=== PATIENT | female | born 1980 | race Caucasian/White ===

== ENCOUNTER 2017-08-10 07:19 | Emergency (ER) | payer OTHER ==
[2017-08-10] MEDS ORDERED: IBUPROFEN 400 MG TAB ONE (07:40)
--- NOTE | 2017-08-10 08:31 | EDPHYS ---
Physician Documentation [facility] Name: Hannah Schroeder Age: 37 yrs Sex: Female : 1980 Arrival Date: 08/10/2017 Time: 07:23 Bed 13 Private MD: Ian Wagoner E ED Physician Kendall Rowe HPI: 08/10 07:45 This 37 yrs old Female presents to ER via Ambulatory with complaints of Foot cp Injury. 07:45 The patient presents with an abrasion, an injury, pain, that is acute. The complaints cp affect the lateral aspect of right foot and dorsum of right foot. Context: The problem was sustained outdoors, resulted from jumping from dock onto boat, the patient can fully bear weight, the patient is able to ambulate. Onset: The symptoms/episode began/occurred last night. Associated signs and symptoms: Pertinent negatives numbness, tingling. Treatment prior to arrival includes: wounds cleaned and dressed. Patient denies any fresh or salt water exposure. 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 - Social history:: Smoking status: Patient/guardian denies using tobacco, never smoked. - Ebola Screening: : Patient negative for fever greater than or equal to 101.5 degrees Fahrenheit, and additional compatible Ebola Virus Disease symptoms Patient denies exposure to infectious person Patient denies travel to an Ebola-affected area in the 21 days before illness onset No symptoms or risks identified at this time. ROS: 07:50 Constitutional: Negative for body aches, chills, fever, poor PO intake. cp 07:50 Eyes: Negative for injury, pain, redness, and discharge. cp 07:50 Cardiovascular: Negative for chest pain. 07:50 Respiratory: Negative for cough, shortness of breath, wheezing. 07:50 Abdomen/GI: Negative for abdominal pain, nausea, vomiting, and diarrhea. 07:50 MS/extremity: Positive for injury or acute deformity, abrasion, pain, swelling, tenderness, of the right foot, Negative for paresthesias. 07:50 All other systems are negative. Exam: 07:58 Constitutional: The patient appears in no acute distress, alert, awake, non-toxic, well cp developed, well nourished. 07:58 Head/Face: Normocephalic, atraumatic. cp Vital Signs: 07:32 BP 127 / 86; Pulse 94; Resp 16; Temp 98.0; Pulse Ox 100% on R/A; Weight 58.51 kg (R); sg Height 5 ft. 8 in. (172.72 cm) (R); Pain 4/10; 07:32 Body Mass Index 19.61 (58.51 kg, 172.72 cm) sg Procedures: 10:08 Splinting: Splint applied to right foot using Orthoglass splint, posterior lower leg, cp non-weight bearing. applied by nurse. Examined by me, post splint application: neurovascular intact, Patient tolerated well. 10:08 Crutch training provided to patient and/or family. Return demonstration given. cp MDM: 07:31 Patient medically screened. cp 08:29 Data reviewed: vital signs, nurses notes, radiologic studies, plain films. cp 08:29 Test interpretation: by ED physician or midlevel provider: plain radiologic studies. cp Counseling: I had a detailed discussion with the patient and/or guardian regarding: the historical points, exam findings, and any diagnostic results supporting the discharge/admit diagnosis, radiology results, the need for outpatient follow up, for definitive care, a orthopedic surgeon, to return to the emergency department if symptoms worsen or persist or if there are any questions or concerns that arise at home. Response to treatment: the patient's symptoms have mildly improved after treatment. 08/10 07:35 Order name: XRAY Foot RIGHT 3 View; Complete Time: 08:58 cp 08/10 08:21 Order name: Wound Care: please clean and dress abrasions on foot; Complete Time: 09:42 cp 08/10 08:21 Order name: Splint - Posterior Leg: short posterior lower leg; Complete Time: 09:41 cp 08/10 08:21 Order name: Crutches; Complete Time: 09:41 cp Administered Medications: 07:41 Drug: Ibuprofen 800 mg Route: PO; sg 09:40 Drug: Tylenol #3 (300 mg-30 mg) 2 tabs Route: PO; sg 09:45 Drug: Zofran 4 mg Route: PO; sg Disposition: 16:18 Co-signature as Attending Physician, Kendall Rowe MD. rn Disposition: 08/10/17 08:30 Discharged to Home. Impression: Nondisplaced fracture of fifth metatarsal bone, right foot, Abrasion of foot. - Condition is Stable. - Prescriptions for Tylenol- Codeine #3 300-30 mg Oral Tablet - take 2 tablets by ORAL route every 6 hours As needed; 20 tablet. Keflex 500 mg Oral Capsule - take 1 capsule by ORAL route every 8 hours for 10 days; 30 capsule. - Medication Reconciliation Form, Thank You Letter, Antibiotic Education, Prescription Opioid Use form. - Follow up: Kostas Montano MD; When: 2 - 3 days; Reason: Recheck today's complaints. - Problem is new. - Symptoms have improved. Signatures: Dispatcher [employer] EDKostas Ziegler RN RN sg Nieto, Roman, MD MD rn Page, Corey, PA PA cp Corrections: (The following items were deleted from the chart) 10:17 08:30 08/10/2017 08:30 Discharged to Home. Impression: Nondisplaced fracture of fifth sg metatarsal bone, right foot; Abrasion of foot. Condition is Stable. Forms are Medication Reconciliation Form, Thank You Letter, Antibiotic Education, Prescription Opioid Use. Follow up: Kostas Montano; When: 2 - 3 days; Reason: Recheck today's complaints. Problem is new. Symptoms have improved. cp
--- NOTE | 2017-08-10 08:31 | ER ---
Nurse's Notes [facility] Name: Hannah Schroeder Age: 37 yrs Sex: Female : 1980 Arrival Date: 08/10/2017 Time: 07:23 Bed 13 Private MD: Ian Wagoner E Diagnosis: Nondisplaced fracture of fifth metatarsal bone, right foot;Abrasion of foot Presentation: 08/10 07:29 Presenting complaint: Patient states: I jumped from a pier onto the both, i didn't sg realize how far down the boat was from the pier, I cut the bottom side of my right foot on the nonskid surface, and it feels like something is moving or loose in my foot. It hurts to bear weight but i am able to walk on it. My cleaned and dressed it last night so that it wouldn't bleed on the sheets. Transition of care: patient was not received from another setting of care. Onset of symptoms was August 10, 2017. Risk Assessment: Do you want to hurt yourself or someone else? Patient reports no desire to harm self or others. Initial Sepsis Screen: Does the patient meet any 2 criteria? No. Patient's initial sepsis screen is negative. Does the patient have a suspected source of infection? No. Patient's initial sepsis screen is negative. Care prior to arrival: wound cleaned and dressed last night. 07:29 Method Of Arrival: Ambulatory sg 07:29 Acuity: [place] 4 sg Triage Assessment: 07:35 General: Appears in no apparent distress. Behavior is calm, cooperative, appropriate sg for age. Pain: Complains of pain in right foot. Musculoskeletal: Circulation, motion, and sensation intact. Capillary refill is brisk, in bilateral fingers. toes. Range of motion: intact in all extremities, Swelling absent. Injury Description: Laceration sustained to right foot is clean, superficial, 0.5 to 2.5 cm long, not bleeding, was sustained 12-24 hours ago. no active bleeding noted at this time. 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 - Social history:: Smoking status: Patient/guardian denies using tobacco, never smoked. - Ebola Screening: : Patient negative for fever greater than or equal to 101.5 degrees Fahrenheit, and additional compatible Ebola Virus Disease symptoms Patient denies exposure to infectious person Patient denies travel to an Ebola-affected area in the 21 days before illness onset No symptoms or risks identified at this time. Screenin:43 Abuse screen: Denies threats or abuse. Denies injuries from another. Nutritional sg screening: No deficits noted. Tuberculosis screening: No symptoms or risk factors identified. Never had TB. Fall Risk None identified. Assessment: 07:42 Reassessment: Patient appears in no apparent distress at this time. Injury Description: sg Abrasion sustained to lateral side of right foot is bleeding, was sustained 12-24 hours ago. 09:47 Reassessment: awaiting transportation home d/t medications prior to dc to home. sg Vital Signs: 07:32 BP 127 / 86; Pulse 94; Resp 16; Temp 98.0; Pulse Ox 100% on R/A; Weight 58.51 kg (R); sg Height 5 ft. 8 in. (172.72 cm) (R); Pain 4/10; 07:32 Body Mass Index 19.61 (58.51 kg, 172.72 cm) sg ED Course: 07:23 Patient arrived in ED. sb2 07:24 Ian Wagoner MD is Private Physician. sb2 07:29 Kostas Howell, RN is Primary Nurse. sg 07:30 Duke Amaro PA is PHCP. cp 07:30 Kendall Rowe MD is Attending Physician. cp 07:32 Triage completed. sg 07:32 Arm band placed on. sg 07:45 Patient has correct armband on for positive identification. sg 07:47 Awaiting for x-ray. sg 08:01 X-ray completed. Portable x-ray completed in exam room. Patient tolerated procedure jb2 well. 08:02 XRAY Foot RIGHT 3 View In Process Unspecified. EDMS 08:29 Kostas Montano MD is Referral Physician. cp 09:30 Crutch training done. Ethan wrap to right foot Orthoglass splint: Posterior short lleg sg splint applied on. Wound care: to abrasion, located on lateral side of right foot was cleaned with soap and water, dressed with Neosporin, 4X4s, Patient tolerated well. 10:00 No provider procedures requiring assistance completed. Patient did not have IV access sg during this emergency room visit. Administered Medications: 07:41 Drug: Ibuprofen 800 mg Route: PO; sg 09:40 Drug: Tylenol #3 (300 mg-30 mg) 2 tabs Route: PO; sg 09:45 Drug: Zofran 4 mg Route: PO; sg Outcome: 08:30 Discharge ordered by . cp 10:00 Discharged to home ambulatory, with crutches, with family. sg 10:00 Condition: good 10:00 Discharge instructions given to patient, family, Instructed on discharge instructions, follow up and referral plans. medication usage, safety practices, crutch walking, Demonstrated understanding of instructions, follow-up care, medications, Prescriptions given X 3. 10:17 Patient left the ED. sg Signatures: Dispatcher [employer] EDMS Kostas Howell RN RN Garret Hernandez jb2 Duke Amaro PA PA Maggie Guzman sb2
--- NOTE | 2017-08-10 08:50 | RAD REPORT ---
EXAM DESCRIPTION: RAD - Foot Right 3 View - 08/10/2017 8:02 am CLINICAL HISTORY: Right foot pain status post injury FINDINGS: No fracture or dislocation is seen
[2017-08-10] MEDS ORDERED: CODEINE 30MG/APAP 300MG TAB ONE (09:32)
[2017-08-10] MEDS ORDERED: ONDANSETRON 4 MG (ODT) TAB ONE (09:33)
[2017-08-10 10:28] VITALS: BP 127/86; TEMP 98; O2SAT 100
== END 2017-08-10 10:17 | disposition home or self-care (01) ==
LOC: ER 07:19
PROC: 2W3QX1Z Immobilization of Right Lower Leg using Splint (ICD-10-PCS; principal; 2017-08-10)
DX: S92.354A Nondisplaced fracture of fifth metatarsal bone, right foot, initial encounter for closed fracture (principal); X58.XXXA Exposure to other specified factors, initial encounter; Y93.39 Activity, other involving climbing, rappelling and jumping off; Y92.89 Other specified places as the place of occurrence of the external cause; Y99.8 Other external cause status
CPT/HCPCS: 99284